=== PATIENT | male | born 1955 | race Caucasian/White ===

== ENCOUNTER 2017-07-03 07:44 | Day surgery (SDC) | payer OTHER ==
[~2017-07-03] VITALS: Ht 175.3 cm; Wt 110.1 kg
[~2017-07-03 07:44] MED LIST: CARDIZEM CD 12120 MG PO; NORCO 325 MG-51 TAB PO; PRINIVIL40 MG PO; TOPROL XL200 MG PO; XARELTO STARTER20 MG PO
[2017-07-03 08:26] LABS: INR 1.5 (0.8-3.0)
[2017-07-03 08:27] LABS: POTASSIUM 3.6 mmol/L (3.4-5.0)
[2017-07-03] MEDS ORDERED: CARDIZEM120 MG PO (08:37)
[2017-07-03] MEDS ORDERED: HCTZ 25MG TAB25 MG PO (08:38)
[2017-07-03] MEDS ORDERED: GLUCOSAMIN 500 PO (08:38)
[2017-07-03] MEDS ORDERED: TOPROL XL200 MG PO (08:39)
[2017-07-03] MEDS ORDERED: PRINIVIL40 MG PO (08:39)
[2017-07-03 08:40] VITALS: BP 159/115; PULSE 61
[2017-07-03] MEDS ORDERED: XARELTO20 MG PO (08:40)
[2017-07-03 09:02] LABS: THYROID STIMULATING HORMONE 5.44 uIU/mL (0.465-4.680)
[2017-07-03] MEDS ORDERED: CORDARONE200 MG/TAB PO (09:06)
[2017-07-03 09:20] VITALS: BP 127/89; PULSE 62
[2017-07-03 09:35] VITALS: BP 121/88; PULSE 71
[2017-07-03 09:50] VITALS: BP 128/92; PULSE 64
== END 2017-07-03 10:07 | disposition home or self-care (01) ==
LOC: COL.CAR 07:44
PROVIDERS: Internal Medicine Cardiovascular Disease
DX: I48.2 Chronic atrial fibrillation (principal); I10 Essential (primary) hypertension; Z68.35 Body mass index [BMI] 35.0-35.9, adult
CPT/HCPCS: J2250; J3010

== ENCOUNTER 2020-03-17 09:32 | Day surgery (SDC) | payer OTHER ==
[2020-03-17] VITALS (42 sets, daily range): BP systolic 112–151; BP diastolic 69–94; PULSE 42–65; TEMP 98.6; O2SAT 93–98
[~2020-03-17] VITALS: Ht 175.3 cm; Wt 109.0 kg
[~2020-03-17 09:32] MED LIST changes: +CARDIZEM CD 24240 MG PO; +CORDARONE200 MG/TAB PO; +GLUCOSAMIN 500 PO; +HCTZ 25MG TAB25 MG PO; +XARELTO20 MG PO
[2020-03-17 10:27] LABS: HEMATOCRIT 46.8 % (42.0-52.0); HEMOGLOBIN 16.3 g/dl (13.5-18.0); MEAN CELL VOLUME 94 fl (80.0-100.0); MEAN CORPUSCULAR HEMOGLOBIN 33 pg (27.0-31.0); MEAN CORPUSCULAR HGB CONC 35 g/dl (33.0-37.0); MEAN PLATELET VOLUME 10.2 fl (7.4-10.4); PLATELET COUNT 288 K/mm3 (130-400); REDCELL DISTRIBUTION WIDTH-CV 13.2 % (11.5-14.5)
[2020-03-17 10:34] LABS: INR 2.5 (0.8-3.0); PROTHROMBIN TIME 27.7 SECONDS (9.7-12.8)
[2020-03-17 10:36] LABS: PARTIAL THROMBOPLASTIN TIME 42.4 SECONDS (26.0-37.0)
[2020-03-17 10:41] LABS: CALCIUM 9.3 mg/dL (8.4-10.2); CREATININE, serum 1.59 (0.66-1.25); POTASSIUM 3.4 mmol/L (3.4-5.0)
[2020-03-17 11:10] LABS: THYROID STIMULATING HORMONE 1.81 uIU/mL (0.465-4.680)
[2020-03-17] MEDS ORDERED: NORVASC 5MG5 MG/TAB PO (12:21)
--- NOTE | 2020-03-17 13:15 | NUR ---
PT IS READY FOR DISCHARGE. DR. UFLTON HAS BEEN BACK IN WITH PATIENT, AND PT VERBALIZED UNDERSTANDING OF DC PLAN AND MED CHANGES. IV DC'D WITH CATH INTACT, DRESSING WAS APPLIED. DC INSTRUCTIONS WERE REVIEWED WITH PT WHO VERBALIZED AGAIN, UNDERSTANDING OF POC. ESCORTED TO EXIT VIA WHEELCHAIR.
== END 2020-03-17 16:18 | disposition home or self-care (01) ==
LOC: COL.CAR 09:32
PROVIDERS: Internal Medicine Cardiovascular Disease
DX: I48.0 Paroxysmal atrial fibrillation (principal); I10 Essential (primary) hypertension; E78.2 Mixed hyperlipidemia; Z86.711 Personal history of pulmonary embolism; Z79.01 Long term (current) use of anticoagulants; Z87.891 Personal history of nicotine dependence; Z82.0 Family history of epilepsy and other diseases of the nervous system

== ENCOUNTER 2020-04-01 11:25 | Inpatient (IN) | payer OTHER ==
[~2020-04-01] VITALS: Ht 175.3 cm; Wt 105.0 kg
[~2020-04-01 11:25] MED LIST changes: +NORVASC 5MG5 MG/TAB PO
--- NOTE | 2020-04-04 09:00 | NUR ---
Pt arrives to medical unit rm [id number], ambulates into rm with steady gait, denies pain or current needs. POC reviewed with pt and home medications reconciled. No further needs reported. Call light in reach.
[2020-04-04] MEDS ORDERED: CRESTOR20 MG PO (09:04)
[2020-04-04] MEDS ORDERED: TOPROL XL200 MG PO (09:04)
[2020-04-04 09:14] VITALS: BP 134/102; PULSE 83; TEMP 98.5
[2020-04-04 09:59] LABS: BASO # 0.1 (0.0-0.2); BASO % 0.7 % (0.0-2.0); EOS # 0.1 (0.0-0.7); EOS % 0.7 % (0-4.0); GRAN # 5.8 (1.4-6.5); GRAN % 68.9 % (42.2-75.2); HEMATOCRIT 47.3 % (42.0-52.0); HEMOGLOBIN 16.4 g/dl (13.5-18.0); LYMPH # 1.7 (1.2-3.4); LYMPH % 20.6 % (20.0-51.0); MEAN CELL VOLUME 94 fl (80.0-100.0); MEAN CORPUSCULAR HEMOGLOBIN 33 pg (27.0-31.0); MEAN CORPUSCULAR HGB CONC 35 g/dl (33.0-37.0); MEAN PLATELET VOLUME 10.1 fl (7.4-10.4); MONO # 0.7 (0.1-0.6); MONO % 8.7 % (1.7-9.3); PLATELET COUNT 269 K/mm3 (130-400); RED BLOOD COUNT 5.04 M/mm3 (4.20-5.60); REDCELL DISTRIBUTION WIDTH-CV 12.9 % (11.5-14.5)
[2020-04-04 10:07] LABS: INR 2.3 (0.8-3.0)
[2020-04-04 10:14] LABS: ALBUMIN 4.6 gm/dL (3.5-5.0); BILIRUBIN,TOTAL 0.6 mg/dL (0.0-1.0); CALCIUM 9.6 mg/dL (8.4-10.2); CREATININE, serum 0.96 (0.66-1.25); MAGNESIUM 1.9 mg/dL (1.6-2.3); POTASSIUM 3.3 mmol/L (3.4-5.0); TOTAL PROTEIN 8.3 gm/dL (6.4-8.2)
[2020-04-04 12:08] VITALS: BP 134/82; PULSE 92; TEMP 98.2
[2020-04-04 16:00] VITALS: BP 136/100; PULSE 69; TEMP 97.7
--- NOTE | 2020-04-04 17:46 | NUR ---
Pt sitting up in chair. Sched medication administered per order. Pt denies needs at this time. Uneventful shift. Call light in reach.
--- NOTE | 2020-04-04 19:15 | NUR ---
Pt reports catching IV to right hand on lunch tray, pulling it out, tip intact. New IV started to left hand with attempts x 2.
[2020-04-04 20:02] VITALS: BP 133/95; PULSE 65; TEMP 98.2
--- NOTE | 2020-04-04 23:04 | NUR ---
Pt resting in chair, assessment completed. meds given per AUG. heart sounds irregular, pt denies chest pain. alert and oriented, independent in room. no other needs at this time.
[2020-04-05] VITALS: BP 142/95; PULSE 77; TEMP 98.1
[2020-04-05 04:00] VITALS: BP 134/93; PULSE 65; TEMP 97.7
--- NOTE | 2020-04-05 05:35 | NUR ---
pt independent in room, called for any needs. vital signs stable throughout the night, sotalol initiated. Tele monitoring, in Afib. no other needs at this time, will continue to monitor.
[2020-04-05 07:39] LABS: BASO # 0.1 (0.0-0.2); BASO % 0.7 % (0.0-2.0); EOS # 0.1 (0.0-0.7); EOS % 0.8 % (0-4.0); GRAN # 5.1 (1.4-6.5); GRAN % 69.8 % (42.2-75.2); HEMATOCRIT 45.7 % (42.0-52.0); HEMOGLOBIN 15.8 g/dl (13.5-18.0); LYMPH # 1.5 (1.2-3.4); MEAN CELL VOLUME 95 fl (80.0-100.0); MEAN CORPUSCULAR HEMOGLOBIN 33 pg (27.0-31.0); MEAN CORPUSCULAR HGB CONC 35 g/dl (33.0-37.0); MEAN PLATELET VOLUME 9.9 fl (7.4-10.4); MONO # 0.6 (0.1-0.6); MONO % 8.4 % (1.7-9.3); PLATELET COUNT 218 K/mm3 (130-400); RED BLOOD COUNT 4.83 M/mm3 (4.20-5.60); REDCELL DISTRIBUTION WIDTH-CV 12.8 % (11.5-14.5)
[2020-04-05 07:43] VITALS: BP 128/80; PULSE 71; TEMP 98
[2020-04-05 07:53] LABS: CALCIUM 8.9 mg/dL (8.4-10.2); CREATININE, serum 0.89 (0.66-1.25); MAGNESIUM 1.8 mg/dL (1.6-2.3); POTASSIUM 3.4 mmol/L (3.4-5.0)
--- NOTE | 2020-04-05 10:05 | NUR ---
Initial visit; Patient thanked Technologist Infectious Disease for looking in on him and offering God's blessings.
--- NOTE | 2020-04-05 10:51 | NUR ---
SW met with the patient to discuss discharge plan. The patient lives in [place] with his , Ilda (ph#[phone]). He reports independence with ADLs and does not have any DME. The patient's PCP is Dr. Edward Hooks and he receives his medications at [facility]. He reports no difficulties obtaining his meds. The patient does not have a DPOA-HC and he was not interested in completing a DPOA-HC at this time. The patient plans to return home with his upon discharge. No additional needs at this time.
[2020-04-05 13:21] VITALS: BP 118/81; PULSE 70; TEMP 98.4
[2020-04-05 16:30] VITALS: BP 121/92; PULSE 74; TEMP 97.7
--- NOTE | 2020-04-05 18:35 | NUR ---
Pt had uneventful day. Denied any chest pain, palpitations, dizziness or SOB. Plan to have cardioversion in the AM, pt understands. No needs at this time.
[2020-04-05 19:58] VITALS: BP 138/94; PULSE 73; TEMP 98.3
--- NOTE | 2020-04-05 20:42 | NUR ---
Pt resting in chair, assessment completed. medications given per MAR, vital signs stable. heart sound are irregular, rate is normal. pt denies chest pain. will continue to monitor, no other needs at this time.
[2020-04-06] VITALS (7 sets, daily range): BP systolic 105–125; BP diastolic 74–89; PULSE 60–75; TEMP 97.6–98.4
--- NOTE | 2020-04-06 05:10 | NUR ---
pt resting in bed during shift, independent in room. informed on NPO status and cardioversion, pt verbalized understanding. preop fluids set up and in room. no other needs at this time.
[2020-04-06 07:48] LABS: BASO % 0.5 % (0.0-2.0); EOS # 0.1 (0.0-0.7); EOS % 0.8 % (0-4.0); GRAN # 4.8 (1.4-6.5); GRAN % 66.4 % (42.2-75.2); HEMATOCRIT 45.9 % (42.0-52.0); HEMOGLOBIN 15.7 g/dl (13.5-18.0); LYMPH # 1.6 (1.2-3.4); LYMPH % 21.4 % (20.0-51.0); MEAN CELL VOLUME 95 fl (80.0-100.0); MEAN CORPUSCULAR HEMOGLOBIN 32 pg (27.0-31.0); MEAN CORPUSCULAR HGB CONC 34 g/dl (33.0-37.0); MEAN PLATELET VOLUME 10.5 fl (7.4-10.4); MONO # 0.8 (0.1-0.6); MONO % 10.6 % (1.7-9.3); PLATELET COUNT 256 K/mm3 (130-400); RED BLOOD COUNT 4.84 M/mm3 (4.20-5.60); REDCELL DISTRIBUTION WIDTH-CV 12.8 % (11.5-14.5)
[2020-04-06 08:00] LABS: CALCIUM 8.9 mg/dL (8.4-10.2); CREATININE, serum 0.93 (0.66-1.25); MAGNESIUM 1.8 mg/dL (1.6-2.3); POTASSIUM 3.4 mmol/L (3.4-5.0)
--- NOTE | 2020-04-06 09:24 | NUR ---
Initial visit; Patient thanked Rhythmic Gymnastics Coach for looking in on him and offering God's blessings.
[2020-04-06] MEDS ORDERED: BETAPACE 120MG120 MG PO (10:23)
--- NOTE | 2020-04-06 11:02 | NUR ---
Patient alert and oriented. he was cardioverted from Afib to Sinus Rhythm. am qtc on EKG was 478. visiting at bedside. vitals within limit. patient decline any pain.
--- NOTE | 2020-04-06 11:54 | NUR ---
Patient recieved discharge information, followup appt for 04/13 at 1pm for EKG, Sotalol 120mg BID. int discontinued. Patient discharge home with spouse.
== END 2020-04-06 11:30 | disposition home or self-care (01) | DRG 310 ==
LOC: MEDICAL 04-04 08:26
PROVIDERS: ADMIT Internal Medicine Cardiovascular Disease
PROC: 5A2204Z Restoration of Cardiac Rhythm, Single (ICD-10-PCS; principal; 2020-04-04)
DX: I48.91 Unspecified atrial fibrillation (principal); I10 Essential (primary) hypertension; Z79.01 Long term (current) use of anticoagulants; Z86.711 Personal history of pulmonary embolism
CPT/HCPCS: J2704; J7120

== ENCOUNTER 2020-05-04 07:19 | Day surgery (SDC) | payer OTHER ==
[~2020-05-04] VITALS: Ht 175.3 cm; Wt 111.2 kg
[~2020-05-04 07:19] MED LIST changes: +BETAPACE 120MG120 MG PO; +CRESTOR20 MG PO
[2020-05-04] MEDS ORDERED: NORVASC 5MG5 MG/TAB PO (08:17)
[2020-05-04] MEDS ORDERED: CRESTOR20 MG PO (08:18)
[2020-05-04] MEDS ORDERED: BETAPACE 120MG120 MG PO (08:19)
[2020-05-04 08:20] VITALS: BP 131/90; PULSE 66; TEMP 98.6
[2020-05-04 08:23] LABS: BASO # 0.1 (0.0-0.2); EOS # 0.1 (0.0-0.7); EOS % 1.2 % (0-4.0); GRAN # 3.6 (1.4-6.5); GRAN % 60.1 % (42.2-75.2); HEMATOCRIT 44.6 % (42.0-52.0); HEMOGLOBIN 15.4 g/dl (13.5-18.0); LYMPH # 1.7 (1.2-3.4); LYMPH % 27.9 % (20.0-51.0); MEAN CELL VOLUME 94 fl (80.0-100.0); MEAN CORPUSCULAR HEMOGLOBIN 32 pg (27.0-31.0); MEAN CORPUSCULAR HGB CONC 35 g/dl (33.0-37.0); MEAN PLATELET VOLUME 9.5 fl (7.4-10.4); MONO # 0.6 (0.1-0.6); MONO % 9.6 % (1.7-9.3); PLATELET COUNT 265 K/mm3 (130-400); RED BLOOD COUNT 4.75 M/mm3 (4.20-5.60); REDCELL DISTRIBUTION WIDTH-CV 13.2 % (11.5-14.5)
[2020-05-04 08:32] LABS: CALCIUM 8.8 mg/dL (8.4-10.2); CREATININE, serum 0.83 (0.66-1.25); POTASSIUM 3.9 mmol/L (3.4-5.0)
[2020-05-04 08:36] LABS: INR 1.7 (0.8-3.0); PROTHROMBIN TIME 18.8 SECONDS (9.7-12.8)
[2020-05-04 08:38] LABS: PARTIAL THROMBOPLASTIN TIME 42.1 SECONDS (26.0-37.0)
[2020-05-04 08:41] LABS: MAGNESIUM 2.1 mg/dL (1.6-2.3)
[2020-05-04 09:12] LABS: THYROID STIMULATING HORMONE 1.88 uIU/mL (0.465-4.680)
[2020-05-04 09:18] VITALS: BP 116/86; PULSE 74
[2020-05-04 09:33] VITALS: BP 116/88; PULSE 74
[2020-05-04 09:48] VITALS: BP 120/82; PULSE 68
[2020-05-04 10:03] VITALS: BP 118/78; PULSE 62
[2020-05-04 10:33] VITALS: BP 114/78; PULSE 62
--- NOTE | 2020-05-04 11:03 | NUR ---
PT spouse turned off [employer] gracy monitor and lost 1103 vital signs
--- NOTE | 2020-05-04 11:50 | NUR ---
INT discontinued intact. Discharge instructions given. Ambulated with pt to private car
== END 2020-05-04 12:00 | disposition home or self-care (01) ==
LOC: COL.CAR 07:19
PROVIDERS: Internal Medicine Cardiovascular Disease
DX: I48.19 Other persistent atrial fibrillation (principal); I10 Essential (primary) hypertension; E78.2 Mixed hyperlipidemia; Z86.711 Personal history of pulmonary embolism; Z79.01 Long term (current) use of anticoagulants; Z79.899 Other long term (current) drug therapy; Z87.891 Personal history of nicotine dependence
CPT/HCPCS: J2704; J7030